=== PATIENT | female | born 1945 | race Caucasian/White ===

== ENCOUNTER 2017-05-23 05:37 | Emergency (ER) | payer OTHER ==
--- NOTE | 2017-05-23 05:57 | CPEKG ---
Heart Rate: 87 RR Interval: 690 P-R Interval: 188 QRSD Interval: 108 QT Interval: 384 QTC Interval: 462 P [place]: 70 QRS [place]: 39 T Wave [place]: 62 EKG Severity - NORMAL ECG - EKG Impression: SINUS RHYTHM Electronically Signed By: Sol Cox 23-May-2017 07:18:02
--- NOTE | 2017-05-23 06:27 | EDPHY ---
H & P Stated Complaint: L arm, L rib pain Time Seen by Provider: 05/23/17 05:48 HPI/ROS: HPI The patient presents with left-sided chest pain which occurred at night. She is not sure exactly when it began, though it has been present for several hours. The pain started spontaneously is described as sharp, is in her lateral chest from her shoulder to her mid abdomen, has been constant, and is worse when she raises her left arm. She has not had any shortness of breath, nausea, vomiting, dizziness, diaphoresis. She has no prior history of this. She has been seeing a chiropractor for back pain. She has no recent injuries or falls. REVIEW OF SYSTEMS Constitutional: No fever, no chills. Eyes: No discharge. ENT: No sore throat. Cardiovascular: Positive for chest pain, no palpitations. Respiratory: No cough, no shortness of breath. Gastrointestinal: No abdominal pain, no vomiting. Genitourinary: No hematuria. Musculoskeletal: No back pain. Skin: No rashes. Neurological: No headache. PMHx: Healthy Soc Hx: Lives at home PHYSICAL General Appearance: Alert, no distress Eyes: Pupils equal and round no pallor or injection ENT, Mouth: Mucous membranes moist Respiratory: There are no retractions, lungs are clear to auscultation Cardiovascular: Regular rate and rhythm Gastrointestinal: Abdomen is soft and non-tender, no masses, bowel sounds normal Neurological: A&O, moves all extremities Skin: Warm and dry, no rashes Musculoskeletal: Neck is supple non tender, there is tenderness along her left lateral chest without any rashes Extremities: symmetrical, full range of motion, pain of her chest with left shoulder extension and external rotation Psychiatric: Patient is oriented X 3, there is no agitation Source: Patient Exam Limitations: No limitations - Personal History Current Tetanus/Diphtheria Vaccine: Unsure Current Tetanus Diphtheria and Acellular Pertussis (TDAP): Unsure - Medical/Surgical History Hx Asthma: No Hx Chronic Respiratory Disease: No Hx Diabetes: No Hx Cardiac Disease: No Hx Renal Disease: No Hx Cirrhosis: No Hx Alcoholism: Yes Hx HIV/AIDS: No Hx Splenectomy or Spleen Trauma: No Other PMH: allergies - Social History Smoking Status: Never smoked Constitutional: Initial Vital Signs Temperature (C) 36.7 C 05/23/17 05:43 Heart Rate 85 05/23/17 05:43 Respiratory Rate 16 05/23/17 05:43 Blood Pressure 145/71 H 05/23/17 05:43 O2 Sat (%) 98 05/23/17 05:43 O2 Delivery Mode Room Air Allergies/Adverse Reactions: Penicillins Allergy (Verified 09/16/12 08:43) Home Medications: Medication Instructions Recorded Lun[place] 09/16/12 [place] Protocol Hormones 05/23/17 Medical Decision Making - Diagnostics EKG Interpretation: EKG: Complete interpretation has been separately recorded in the [facility] archive. Summary impression: T-wave flattening in aVL Imaging Results: Chest x-ray one view shows no acute findings, interpreted by me, radiology interpretation is pending. Differential Diagnosis: This is a relatively healthy 71-year-old female who presents with left-sided chest pain which is diffuse, sharp, worse when she moves her left arm. Differential diagnosis includes muscle strain, costochondritis, ACS less likely. In the emergency room, patient's EKG, chest x-ray, laboratory testing including troponin was all unremarkable. Given the nature of this pain which is worse with changes in position and lifting her arm, I feel likely the pain is muscular or costochondritis. I plan to discharge her home and I have discussed that she should come back to the emergency room if she has any worsening pain or her pain just does not improve. Otherwise I will refer her back to her primary care doctor. - Data Points Laboratory Results: Laboratory Results 05/23/17 06:20 05/23/17 06:20 05/23/17 05/23/17 06:20 06:20 WBC 12.41 10^3/uL H 10^3/uL (3.80-9.50) RBC 4.41 10^6/uL 10^6/uL (4.18-5.33) Hgb 14.9 g/dL g/dL (12.6-16.3) Hct 43.3 % % (38.0-47.0) MCV 98.2 fL fL (81.5-99.8) MCH 33.8 pg pg (27.9-34.1) MCHC 34.4 g/dL g/dL (32.4-36.7) RDW 13.3 % % (11.5-15.2) Plt Count 284 10^3/uL 10^3/uL (150-400) MPV 9.6 fL fL (8.7-11.7) Neut % (Auto) 85.3 % H % (39.3-74.2) Lymph % (Auto) 8.9 % L % (15.0-45.0) Ray % (Auto) 4.8 % % (4.5-13.0) Eos % (Auto) 0.1 % L % (0.6-7.6) Baso % (Auto) 0.5 % % (0.3-1.7) Nucleat RBC Rel Count 0.0 % % (0.0-0.2) Absolute Neuts (auto) 10.58 10^3/uL H 10^3/uL (1.70-6.50) Absolute Lymphs (auto) 1.11 10^3/uL 10^3/uL (1.00-3.00) Absolute Monos (auto) 0.60 10^3/uL 10^3/uL (0.30-0.80) Absolute Eos (auto) 0.01 10^3/uL L 10^3/uL (0.03-0.40) Absolute Basos (auto) 0.06 10^3/uL 10^3/uL (0.02-0.10) Absolute Nucleated RBC 0.00 10^3/uL 10^3/uL (0-0.01) Immature Gran % 0.4 % % (0.0-1.1) Immature Gran # 0.05 10^3/uL 10^3/uL (0.00-0.10) Sodium 146 mEq/L H mEq/L (134-144) Potassium 4.1 mEq/L mEq/L (3.5-5.2) Chloride 109 mEq/L mEq/L (97-110) Carbon Dioxide 24 mEq/l mEq/l (22-31) Anion Gap 13 mEq/L mEq/L (8-16) BUN 12 mg/dL mg/dL (7-23) Creatinine 0.5 mg/dL L mg/dL (0.6-1.0) Estimated GFR > 60 Glucose 92 mg/dL mg/dL (70-100) Calcium 8.6 mg/dL mg/dL (8.5-10.4) Troponin I < 0.012 ng/mL ng/mL (0-0.034) Departure - Departure Disposition: Home, Routine, Self-Care Clinical Impression: Chest wall pain Condition: Good Instructions: Chest Wall Pain (ED) Additional Instructions: You can try anti-inflammatories as needed for pain such as ibuprofen 400 mg or Tylenol 650 mg every 6 hours. Please return to the emergency room if your worse in any way. Referrals: Shalini De León MD [Primary Care Provider] - As per Instructions
[2017-05-23 06:29] LABS: % IMMATURE GRANULYOCYTES 0.4 % (0.0-1.1); ABSOLUTE IMMATURE GRANULOCYTES 0.05 10^3/uL (0.00-0.10); ADD DIFF? NO; ADD MORPH? NO; ADD SCAN? NO; ATYPICAL LYMPHOCYTE FLAG 0 (0-99); FRAGMENT RBC FLAG 0 (0-99); HEMATOCRIT 43.3 % (38.0-47.0); HEMOGLOBIN 14.9 g/dL (12.6-16.3); LEFT SHIFT FLG 10 (0-99); LIPEMIA HEMOLYSIS FLAG 90 (0-99); MEAN CELL HEMOGLOBIN 33.8 pg (27.9-34.1); MEAN CELL HEMOGLOBIN CONCENTR. 34.4 g/dL (32.4-36.7); MEAN CELL VOLUME 98.2 fL (81.5-99.8); MEAN PLATELET VOLUME 9.6 fL (8.7-11.7); PLATELET CLUMPS FLAG 0 (0-99); PLATELET COUNT 284 10^3/uL (150-400); RED BLOOD CELL COUNT 4.41 10^6/uL (4.18-5.33); RED CELL DISTRIBUTION WIDTH 13.3 % (11.5-15.2)
[2017-05-23 06:39] LABS: ANION GAP 13 mEq/L (8-16); CALCIUM 8.6 mg/dL (8.5-10.4); CARBON DIOXIDE 24 mEq/l (22-31); CHLORIDE 109 mEq/L (97-110); CREATININE 0.5 mg/dL (0.6-1.0); GLOMERULAR FILTRATION RATE > 60; GLUCOSE 92 mg/dL (70-100); POTASSIUM 4.1 mEq/L (3.5-5.2); SODIUM 146 mEq/L (134-144)
[2017-05-23 06:50] LABS: TROPONIN I < 0.012 ng/mL (0-0.034)
[2017-05-23 07:26] VITALS: BP 125/89; PULSE 69; RESP 18; TEMP 97.7; O2SAT 95
== END 2017-05-23 07:23 | disposition home or self-care (01) ==
DX: R07.89 Other chest pain (principal)

== ENCOUNTER → 2018-02-24 | Outpatient (CLI) | payer OTHER | LOC: FIMAGING 10:56 | PROVIDERS: ATTEND Psychiatry & Neurology Neurology | DX: G31.9 Degenerative disease of nervous system, unspecified (principal); H53.19 Other subjective visual disturbances; R42 Dizziness and giddiness ==